=== PATIENT | male | born 1940 | race Caucasian/White ===

== ENCOUNTER 2018-01-10 06:24 | Day surgery (SDC) | payer MEDICARE, OTHER ==
[~2018-01-10] VITALS: Ht 182.9 cm; Wt 85.7 kg
[2018-01-10 06:45] VITALS: BP 185/93; PULSE 69; TEMP 97.6
[2018-01-10] MEDS ORDERED: CIPRO 500MG TA500 MG PO (06:48)
[2018-01-10] MEDS ORDERED: MACRODANTIN100 PO (06:48)
[2018-01-10] MEDS ORDERED: LIPITOR 80MG80 MG PO (06:49)
[2018-01-10] MEDS ORDERED: CALAN120 MG PO (06:49)
[2018-01-10] MEDS ORDERED: CITRACAL + D CA1 TAB PO (06:50)
[2018-01-10] MEDS ORDERED: VITAMIN D 400400 IU PO (06:50)
[2018-01-10] MEDS ORDERED: VITAMIN C500 MG PO (06:50)
[2018-01-10] MEDS ORDERED: MASON NATURAL1200 MG PO (06:50)
[2018-01-10] MEDS ORDERED: SAW PALMETTO PO (06:51)
[2018-01-10] MEDS ORDERED: OSTEO-BI-FLEX 21 TAB PO (06:52)
[2018-01-10] MEDS ORDERED: MAGNESIUM250 M1 PO (06:52)
[2018-01-10] MEDS ORDERED: ASPIRIN 32325 MG/TAB PO (06:54)
[2018-01-10] MEDS ORDERED: K-PHOS ORIGINA500 MG PO (06:54)
[2018-01-10 07:12] LABS: HEMATOCRIT 43.4 % (42.0-52.0); HEMOGLOBIN 14.8 g/dl (13.5-18.0); MEAN CELL VOLUME 88 fl (80.0-100.0); MEAN CORPUSCULAR HEMOGLOBIN 30 pg (27.0-31.0); MEAN CORPUSCULAR HGB CONC 34 g/dl (33.0-37.0); MEAN PLATELET VOLUME 10.1 fl (7.4-10.4); PLATELET COUNT 127 K/mm3 (130-400); RED BLOOD COUNT 4.92 M/mm3 (4.20-5.60); REDCELL DISTRIBUTION WIDTH-CV 13.2 % (11.5-14.5)
[2018-01-10] MEDS ORDERED: ISOPTIN SR120 MG PO (08:22)
[2018-01-10 08:48] VITALS: BP 111/59; PULSE 58; TEMP 97
[2018-01-10 09:00] VITALS: BP 107/45; PULSE 53
[2018-01-10 09:15] VITALS: BP 121/56; PULSE 57
[2018-01-10 09:30] VITALS: BP 109/72; PULSE 52
[2018-01-10 10:00] VITALS: BP 108/58; PULSE 54
== END 2018-01-10 11:30 | disposition home or self-care (01) ==
LOC: SDCO 06:24
PROVIDERS: Urology
DX: N35.9 Urethral stricture, unspecified (principal); Z90.79 Acquired absence of other genital organ(s); I25.10 Atherosclerotic heart disease of native coronary artery without angina pectoris; N40.1 Benign prostatic hyperplasia with lower urinary tract symptoms; R33.8 Other retention of urine; R39.15 Urgency of urination; E78.00 Pure hypercholesterolemia, unspecified; Z85.46 Personal history of malignant neoplasm of prostate; Z79.82 Long term (current) use of aspirin; Z87.891 Personal history of nicotine dependence; Z83.3 Family history of diabetes mellitus; Z82.49 Family history of ischemic heart disease and other diseases of the circulatory system; Z80.42 Family history of malignant neoplasm of prostate
CPT/HCPCS: C1769; J0690; J2250; J2704; J7120